=== PATIENT | male | born 1965 | race Caucasian/White ===

== ENCOUNTER 2018-11-04 16:26 | Emergency (ER) | payer OTHER | END 2018-11-04 18:00 | disposition home or self-care (01) | LOC: FTE 16:26 | DX: L03.115 Cellulitis of right lower limb (principal); R40.2412 Glasgow coma scale score 13-15, at arrival to emergency department; I10 Essential (primary) hypertension; J45.909 Unspecified asthma, uncomplicated; F17.210 Nicotine dependence, cigarettes, uncomplicated | CPT/HCPCS: 99283; Z7502 ==

== ENCOUNTER 2019-07-27 18:08 | Emergency (ER) | payer OTHER | END 2019-07-27 19:33 | disposition home or self-care (01) | LOC: FTE 18:08 | DX: H00.014 Hordeolum externum left upper eyelid (principal); I10 Essential (primary) hypertension; J45.909 Unspecified asthma, uncomplicated; F17.210 Nicotine dependence, cigarettes, uncomplicated | CPT/HCPCS: 99283; Z7502 ==

== ENCOUNTER 2019-08-06 16:31 | Emergency (ER) | payer OTHER | END 2019-08-06 18:30 | disposition home or self-care (01) | LOC: E/R 18:30 | DX: J20.9 Acute bronchitis, unspecified (principal); H00.014 Hordeolum externum left upper eyelid; I10 Essential (primary) hypertension; F17.210 Nicotine dependence, cigarettes, uncomplicated; J45.909 Unspecified asthma, uncomplicated | CPT/HCPCS: 99283; Z7502 ==